=== PATIENT | female | born 1960 | race Caucasian/White ===

== ENCOUNTER 2019-01-22 20:03 | Emergency (ER) | payer OTHER ==
[~2019-01-22] VITALS: Ht 165.1 cm; Wt 131.5 kg
[~2019-01-22 20:03] MED LIST: ADVAIR 250-501 EACH; LORAZEPAM0.5 MG; TENORMIN25 MG
[2019-01-22 20:57] LABS: BASOPHILS # (AUTO) 0.1 (0.0-0.1); BASOPHILS % 0.8 % (0.0-1.0); EOSINOPHILS # (AUTO) 0.1 (0.0-0.4); EOSINOPHILS % 1.9 % (0.0-6.0); HEMATOCRIT 43.9 % (34.2-44.1); HEMOGLOBIN 14.7 g/dL (12.0-16.0); LYMPHOCYTES # (AUTO) 1.5 (1.0-3.2); LYMPHOCYTES % 24.9 % (18.0-39.1); MEAN CORPUSCULAR HEMOGLOBIN 30.8 pg (28-32); MEAN CORPUSCULAR HGB CONC 33.5 g/dL (31-35); MEAN CORPUSCULAR VOLUME 91.8 fL (81-99); MONOCYTES # (AUTO) 0.5 (0.2-0.8); MONOCYTES % 7.4 % (4.4-11.3); NEUTROPHILS % 64.7 % (38.7-80.0); PLATELET COUNT 282 x10e3/uL (140-360); RED BLOOD COUNT 4.78 x10e6/uL (3.6-5.1); RED CELL DISTRIBUTION WIDTH 12.7 % (11.7-14.4)
[2019-01-22 21:17] LABS: ALANINE AMINOTRANSFERASE 32 IU/L (0-55); ALBUMIN/GLOBULIN RATIO 1.1 (0.8-2.0); ALKALINE PHOSPHATASE 70 IU/L (40-150); ANION GAP 16.2 mmol/L (8-16); BLOOD UREA NITROGEN 16 mg/dL (7-26); BUN/CREATININE RATIO 20 (6-25); CALCIUM 9.6 mg/dL (8.4-10.2); CARBON DIOXIDE 24 mmol/L (22-29); CHLORIDE 107 mmol/L (98-107); CREATINE KINASE 278 IU/L (29-168); CREATININE, SERUM 0.82 mg/dL (0.57-1.11); EST GLOMERULAR FILTRATION RATE > 60 ML/MIN (60-); GLUCOSE 130 mg/dL (74-118); POTASSIUM 4.2 mmol/L (3.5-5.1); SODIUM 143 mmol/L (136-145)
--- NOTE | 2019-01-22 21:40 | Diagnostic Imaging Report ---
EXAMINATION: CHEST 2 VIEWS INDICATION: Chest pain COMPARISON: Chest x-ray 09/26/2012 FINDINGS: TUBES and LINES: None. LUNGS: Lungs are well inflated. Lungs are clear. Mild prominence of central pulmonary vasculature. PLEURA: No pleural effusion or pneumothorax. HEART AND MEDIASTINUM: Cardiac size is borderline enlarged. BONES AND SOFT TISSUES: No acute osseous lesion. Soft tissues are unremarkable. Degenerative changes in the spine and shoulders. UPPER ABDOMEN: No free air under the diaphragm. IMPRESSION: Borderline cardiomegaly with mild central pulmonary vascular congestion.. Signed by: Shorty Clayton DO on 01/22/2019 9:37 PM
[2019-01-23 00:59] VITALS: BP 125/68
--- OUTSIDE RECORDS SUMMARY | 2019-01-28 12:16 | XMS REPORT ---
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 Allergies, Adverse Reactions, Alerts This patient has no known allergies or adverse reactions. Medications This patient has no known medications. Results Test Description Test Time Test Comments Text Results Atomic Results Result Comments CHEST 2 VIEWS 2019-01-22 21:35:00 [place] [id number] Patient Name: LISA WEST MR #: [id number] : 1960 Age/Sex: 58/F Req #: [id number] Adm Physician: Ordered by: WAYNE WASSERMAN DO Report #: [id number] Location: ER Room/Bed: Procedure: [id number] DX/CHEST 2 VIEWS Exam Date: 01/22/19 Exam Time: 2104 REPORT STATUS: Signed EXAMINATION: CHEST 2 VIEWS INDICATION: Chest pain COMPARISON: Chest x-ray 09/26/2012 FINDINGS: TUBES and LINES: None. LUNGS: Lungs are well inflated. Lungs are clear. Mild prominence of central pulmonary vasculature. PLEURA: No pleural effusion or pneumothorax. HEART AND MEDIASTINUM: Cardiac size is borderline enlarged. BONES AND SOFT TISSUES: No acute osseous lesion. Soft tissues are unremarkable. Degenerative changes in the spine and shoulders. UPPER ABDOMEN: No free air under the diaphragm. IMPRESSION: Borderline cardiomegaly with mild central pulmonary vascular congestion.. Signed by: Shorty Clayton DO on 01/22/2019 9:37 PM Dictated By: SHORTY CLAYTON DO 36 Transcribed By: [email or web address] on 01/22/192136 COPY TO: WAYNE WASSERMAN DO
== END 2019-01-23 01:01 | disposition home or self-care (01) ==
LOC: ER 20:03
DX: R07.89 Other chest pain (principal); R10.13 Epigastric pain
CPT/HCPCS: 36415; 71046; 80053; 82550; 82553; 83880; 84484; 85025; 93005; 99284

== ENCOUNTER 2020-12-05 09:05 | Inpatient (IN) | payer OTHER ==
[~2020-12-05] VITALS: Ht 165.1 cm; Wt 129.3 kg
[2020-12-05] MEDS ORDERED: LOSARTAN POTASS50 MG PO (09:27)
[2020-12-05] MEDS ORDERED: OMEPRAZOLE20 M2 PO (09:27)
[2020-12-05 10:09] LABS: BASOPHILS # (AUTO) 0.1 (0.0-0.1); BASOPHILS % 1.4 % (0.0-1.0); EOSINOPHILS # (AUTO) 0.1 (0.0-0.4); EOSINOPHILS % 1.2 % (0.0-6.0); HEMATOCRIT 43.2 % (34.2-44.1); HEMOGLOBIN 14.5 g/dL (12.0-16.0); LYMPHOCYTES # (AUTO) 1.3 (1.0-3.2); LYMPHOCYTES % 26.9 % (18.0-39.1); MEAN CORPUSCULAR HEMOGLOBIN 31.4 pg (28-32); MEAN CORPUSCULAR HGB CONC 33.6 g/dL (31-35); MEAN CORPUSCULAR VOLUME 93.5 fL (81-99); MONOCYTES # (AUTO) 0.4 (0.2-0.8); MONOCYTES % 8.3 % (4.4-11.3); NEUTROPHILS % 61.4 % (38.7-80.0); PLATELET COUNT 240 x10e3/uL (140-360); RED BLOOD COUNT 4.62 x10e6/uL (3.6-5.1); RED CELL DISTRIBUTION WIDTH 12.6 % (11.7-14.4)
[2020-12-05 10:37] LABS: ALBUMIN 3.8 g/dL (3.5-5.0); ALBUMIN/GLOBULIN RATIO 0.9 (0.8-2.0); ANION GAP 16.6 mmol/L (8-16); CALCIUM 8.8 mg/dL (8.4-10.2); CREATININE, SERUM 0.79 mg/dL (0.57-1.11); POTASSIUM 4.6 mmol/L (3.5-5.1)
[2020-12-05 12:45] VITALS: BP 174/95
[2020-12-05 13:19] VITALS: BP 174/95
[2020-12-05 16:10] VITALS: BP 167/89
[2020-12-05 19:46] VITALS: BP 160/86
[2020-12-05 20:00] VITALS: BP 160/86
[2020-12-05 23:53] VITALS: BP 143/74
[2020-12-06] VITALS (7 sets, daily range): BP systolic 135–176; BP diastolic 78–94
[2020-12-06] MEDS ORDERED: LOSARTAN POTASSIUM 25 MG TAB PO SCH (09:00)
[2020-12-06] MEDS ORDERED: ASPIRIN 325 MG TAB EC PO SCH (09:00)
[2020-12-06 12:43] LABS: FREE THYROXINE INDEX 2.2122 (1.4-3.8); THYROID STIMULATING HORMONE 1.649 uIU/mL (0.350-4.940)
[2020-12-06] MEDS ORDERED: LOSARTAN POTASSIUM 25 MG TAB PO ONE (14:00)
[2020-12-06 16:07] LABS: CHOL/HDL RATIO 3.7 (3.0-3.6)
[2020-12-06] MEDS: ENOXAPARIN SOD INJ 40 MG/0.4 ML SYR SC SCH ×2 (16:41→17:00)
[2020-12-06] MEDS: LOSARTAN POTASSIUM 25 MG TAB PO SCH (23:57)
[2020-12-07] VITALS (15 sets, daily range): BP systolic 133–164; BP diastolic 73–89
[2020-12-07 05:03] LABS: BASOPHILS # (AUTO) 0.1 (0.0-0.1); BASOPHILS % 0.8 % (0.0-1.0); EOSINOPHILS # (AUTO) 0.1 (0.0-0.4); EOSINOPHILS % 1.8 % (0.0-6.0); HEMATOCRIT 42.2 % (34.2-44.1); HEMOGLOBIN 14.2 g/dL (12.0-16.0); LYMPHOCYTES # (AUTO) 1.5 (1.0-3.2); LYMPHOCYTES % 25.7 % (18.0-39.1); MEAN CORPUSCULAR HEMOGLOBIN 31.1 pg (28-32); MEAN CORPUSCULAR HGB CONC 33.6 g/dL (31-35); MEAN CORPUSCULAR VOLUME 92.5 fL (81-99); MONOCYTES # (AUTO) 0.6 (0.2-0.8); MONOCYTES % 9.5 % (4.4-11.3); NEUTROPHILS # (AUTO) 3.7 (2.1-6.9); PLATELET COUNT 272 x10e3/uL (140-360); RED BLOOD COUNT 4.56 x10e6/uL (3.6-5.1); RED CELL DISTRIBUTION WIDTH 12.5 % (11.7-14.4)
[2020-12-07 05:26] LABS: CALCIUM 8.9 mg/dL (8.4-10.2); CREATININE, SERUM 0.74 mg/dL (0.57-1.11)
[2020-12-07] MEDS ORDERED: ASPIRIN 81 MG ENTERIC COATED PO SCH (09:00)
[2020-12-07] MEDS: LOSARTAN POTASSIUM 25 MG TAB PO SCH (09:00)
[2020-12-07] MEDS ORDERED: MIDAZOLAM HCL 2 MG/2 ML VIAL ONE (13:37)
[2020-12-07] MEDS ORDERED: VERAPAMIL HCL 2.5 MG/ML 2 ML VIAL ONE (13:37)
[2020-12-07] MEDS ORDERED: IOPAMIDOL 370 MG/ML 200 ML INFUS..BTL INJ ONE (13:38)
[2020-12-07] MEDS ORDERED: SODIUM CHLORIDE 0.9% 1000ML 1,000 ML ONE (13:38)
[2020-12-07] MEDS ORDERED: HEPARIN SOD/SOD CHLORIDE 2,000 ML ONE (13:38)
[2020-12-07] MEDS ORDERED: LIDOCAINE HCL 2% LOCAL 20 ML VIAL ONE (13:38)
[2020-12-07] MEDS ORDERED: FENTANYL CITRATE/PF 100MCG/2 ML INJ ONE (13:38)
[2020-12-07] MEDS ORDERED: LOSARTAN POTASS25 MG PO (17:42)
[2020-12-07] MEDS ORDERED: ATORVASTATIN CA20 MG PO (17:43)
[2020-12-07] MEDS ORDERED: ASPIRIN81 MG PO (17:45)
[2020-12-07] MEDS ORDERED: ATORVASTATIN 40 MG TAB PO SCH (21:00)
== END 2020-12-07 18:30 | disposition home or self-care (01) | DRG 287 ==
LOC: ER 09:15 → ERHOLD 11:14 → MED/SURG3 12:31 → OBSVTOIN 12-07 16:18
PROVIDERS: ADMIT Internal Medicine; ATTEND Internal Medicine
PROC: 4A023N7 Measurement of Cardiac Sampling and Pressure, Left Heart, Percutaneous Approach (ICD-10-PCS; principal; 2020-12-07)
PROC: B2111ZZ Fluoroscopy of Multiple Coronary Arteries using Low Osmolar Contrast (ICD-10-PCS; 2020-12-07)
PROC: B2151ZZ Fluoroscopy of Left Heart using Low Osmolar Contrast (ICD-10-PCS; 2020-12-07)
DX: R07.9 Chest pain, unspecified (principal); Z68.42 Body mass index [BMI] 45.0-49.9, adult; G47.33 Obstructive sleep apnea (adult) (pediatric); I10 Essential (primary) hypertension; E66.9 Obesity, unspecified; Z20.822 Contact with and (suspected) exposure to COVID-19
CPT/HCPCS: 36415; 71045; 78452; 80048; 80053; 80061; 83880; 84436; 84443; 84479; 84484; 85025; 93005; 93017; 93306; 93458; 96360; 99152; 99285; A9502; C1887; G0378; J1650; J2001; J2250; J3010; J7030; Q9967; U0002

== ENCOUNTER 2022-01-12 13:15 | Emergency (ER) | payer OTHER ==
[~2022-01-12] VITALS: Ht 165.1 cm; Wt 117.9 kg
[~2022-01-12 13:15] MED LIST changes: +ASPIRIN81 MG PO; +ATORVASTATIN CA20 MG PO; +LOSARTAN POTASS25 MG PO; +LOSARTAN POTASS50 MG PO; +OMEPRAZOLE20 M2 PO
== END 2022-01-12 13:52 | disposition home or self-care (01) ==
LOC: ER 13:21
DX: I10 Essential (primary) hypertension (principal); G47.30 Sleep apnea, unspecified
CPT/HCPCS: 99282